=== PATIENT | female | born 1930 | race Caucasian/White ===

== ENCOUNTER 2016-11-23 13:59 | Inpatient (IN) | payer MEDICARE, BC ==
[~2016-11-23] VITALS: Ht 157.5 cm; Wt 62.9 kg
[~2016-11-23 13:59] MED LIST: AMOXIL250 M1 PO; ASPIRIN81 MG PO; CATAPRES0.1 MG PO; CELEXA10 MG PO; LASIX20 MG PO; LISINOPRIL10 MG PO; MULTIPLE VITAMI1 TA1 PO; OXYBUTYNIN CHLOR5 MG PO; SENSIPAR30 MG PO; SYNTHROID100 MCG PO; TOPROL XL100 MG PO; TOPROL XL25 MG PO; TOPROL XL50 MG PO; XANAX0.25 MG PO; ZYLOPRIM100 MG PO
[2016-11-23 14:35] LABS: BASOPHILS 0.2 % (0.0-2.0); EOSINOPHILS 4.6 % (0-7); HEMOGLOBIN 10.8 g/dL (12-16); IMMATURE GRANULOCYTES 0.3 % (0-5); LYMPHOCYTES 10.9 % (15-50); MCH 28.9 pg (26.0-34.0); MCHC 32.7 g/dL (31.0-37.0); MCV 88.2 fL (80.0-100.0); MEAN PLATELET VOLUME 10.1 fL (7.4-10.4); MONOCYTES 6.3 % (2-11); NEUTROPHILS 77.7 % (40-80); PLATELET COUNT 266 10x3/uL (130-400); RBC 3.74 10x6/uL (4.00-5.40); RDW 14.9 % (11.5-14.5); WBC 9.5 10x3/uL (4.8-10.8)
[2016-11-23 14:57] LABS: ALBUMIN 3.3 g/dL (3.4-5.0); ANION GAP 21.6 mmol/L (8-16); BILIRUBIN - TOTAL 0.37 mg/dL (0.2-1.3); CALCIUM 8.9 mg/dL (8.5-10.1); CARBON DIOXIDE 17.1 mmol/L (21.0-32.0); CREATININE - SERUM 3.2 mg/dL (0.6-1.3); POTASSIUM - SERUM 5.7 mmol/L (3.5-5.1); PROTEIN - SERUM 6.9 g/dL (6.4-8.2)
[2016-11-23 15:08] LABS: T4 THYROXIN - FREE 1.93 ng/dL (0.76-1.46); T4 THYROXINE 11.1 ug/dL (4.7-13.3); THYROID STIMULATING HORMONE 2.05 uIU/mL (0.36-3.74)
[2016-11-23 15:12] LABS: MAGNESIUM - SERUM 1.7 mg/dL (1.8-2.4)
[2016-11-23 15:14] LABS: TROPONIN-I 0.273 ng/mL (0.000-0.060)
[2016-11-23 16:58] VITALS: BP 105/65; BMI 24.1
--- NOTE | 2016-11-23 17:12 | NUR ---
PT IS ALERT. RECEIVED FROM ER VIA STRETCHER. NO CO PAIN AT THIS TIME. WILL CONTINUE TO MONTIOR. 113 UNCONTROLLED AFIB.
--- NOTE | 2016-11-23 19:09 | NUR ---
INITIAL ROUNDS COMPLETED. PT DENIES ANY DISCOMFORT. WILL CONTINUE TO MONITOR.
--- NOTE | 2016-11-23 20:07 | NUR ---
ASSESSMENT COMPLETED AT 1930 HRS. UCAF PER CM HR 126. BP 90/59. IV TO LAC WIT BICARB DRIP AT 125CC/HR. IV PATENT. LUNGS DIMINISHED IN BASES BILAT. DMITRI ANY DISCOMFORT. BED ALARM ON. SR UP X2, CALL LIGHT WITHIN REACH.
[2016-11-23 20:49] VITALS: BP 90/59
--- NOTE | 2016-11-23 21:48 | NUR ---
PM MED GIVEN. PT DENIES ANY NEEDS OR DISCOMFORT. WILL CONTINUE TO MONITOR. SR UP X2, CALL LIGHT WITHIN REACH AND BED ALARM ON.
[2016-11-24 00:04] VITALS: BP 96/55
--- NOTE | 2016-11-24 00:25 | NUR ---
ASSISTED PT TO BR. SILVA DIARRHEA NOTED. PT CLEANED AND NEW DEPENDS PLACED. ASSISTED BACK TO BED. WILL CONTINUE TO MONITOR. SR UP X2, CALL LIGHT WITHIN REACH.
--- NOTE | 2016-11-24 02:09 | NUR ---
PT AWAKE; DENIES ANY DISCOMFORT. UCAF PER CM HR 132. WILL CONTINUE TO MONITOR. SR UP X2, CALL LIGHT WITHIN REACH AND BED ALARM ON.
--- NOTE | 2016-11-24 04:04 | NUR ---
UCAF PER CM HR 136. PT DENIES ANY DISCOMFORT. WILL CONTINUE TO MONITOR.
[2016-11-24 04:12] VITALS: BP 93/57
--- NOTE | 2016-11-24 06:01 | NUR ---
PT CONTINUES TO BE IN UCAF HR 120'S TO 130'S PER CM. DENIES ANY DISCOMFORT. PT STATED SHE WAS SCARED. EMOTIONAL SUPPORT GIVEN. NEEDS MET; WILL CONTINUE TO MONITOR.
[2016-11-24 06:05] LABS: BASOPHILS 0.1 % (0.0-2.0); EOSINOPHILS 4.1 % (0-7); HEMATOCRIT 29.8 % (36.0-48.0); HEMOGLOBIN 9.8 g/dL (12-16); IMMATURE GRANULOCYTES 0.2 % (0-5); LYMPHOCYTES 13.8 % (15-50); MCH 28.4 pg (26.0-34.0); MCHC 32.9 g/dL (31.0-37.0); MCV 86.4 fL (80.0-100.0); MEAN PLATELET VOLUME 10.7 fL (7.4-10.4); MONOCYTES 9.1 % (2-11); NEUTROPHILS 72.7 % (40-80); PLATELET COUNT 280 10x3/uL (130-400); RBC 3.45 10x6/uL (4.00-5.40); RDW 14.8 % (11.5-14.5); WBC 8.1 10x3/uL (4.8-10.8)
[2016-11-24 06:21] LABS: CALCIUM 8.6 mg/dL (8.5-10.1); CREATININE - SERUM 2.9 mg/dL (0.6-1.3)
[2016-11-24 06:23] LABS: CARBON DIOXIDE 26.2 mmol/L (21.0-32.0); POTASSIUM - SERUM 4.2 mmol/L (3.5-5.1)
[2016-11-24 08:52] VITALS: BP 116/48
--- NOTE | 2016-11-24 09:47 | NUR ---
TELEMETRY UCAF. IV STARTED TO RITH WRIST WITH 22 GAUGE CATH. DILTIAZEM GTT STARTED PER ORDERS. WILL CONT. PLAN OF CARE.
[2016-11-24 13:20] VITALS: BP 97/59
[2016-11-24 16:25] LABS: ERYTHROCYTE SEDIMENTATION RATE 30 mm/hr (0-42)
--- NOTE | 2016-11-24 16:40 | NUR ---
URINE SPECIMEN COLLECTED AND TAKEN TO LAB.
[2016-11-24 16:58] LABS: CREATININE - URINE 102.1 mg/dL (30-125); PRO/CRE RATIO URINE 0.3 mg/g; PROTEIN - URINE 30.3 mg/dL (0.0-11.9)
[2016-11-24 17:18] VITALS: BP 95/44
[2016-11-24 17:39] LABS: APPEARANCE HAZY (CLEAR); BILIRUBIN NEGATIVE (NEGATIVE); COLOR YELLOW (YELLOW); GLUCOSE NEGATIVE (NEGATIVE); KETONE NEGATIVE (NEGATIVE); LEUKOCYTE ESTERASE 1+ (NEGATIVE); NITRITE NEGATIVE (NEGATIVE); PROTEIN NEGATIVE (NEGATIVE); SPECIFIC GRAVITY 1.015 (1.005-1.020); UROBILINOGEN NORMAL (NORMAL)
[2016-11-24 17:40] LABS: BACTERIA MANY /hpf (NONE SEEN); RED CELLS - URINE 0-5 /hpf (0-5)
--- NOTE | 2016-11-24 20:13 | NUR ---
INITIAL ROUNDS COMPLETED AT 1914 HRS. DAUGHTER AT BEDSIDE. ASSESSMENT COMPLETED AT 1939 HRS. CAF PER CM HR 75. IV TO RFA WITH CARDIZEM DRIP AT 10CC/HR AND DNS AT 50CC/HR. IV PATENT. IV TO LAC SL. LUNGS DIMINISHED INBASES BILAT. BD ALARM ON. WILL CONTINUE TO MONITOR. SR UP X2, CALL LIGHT WITHIN REACH.
[2016-11-24 20:19] VITALS: BP 100/70
--- NOTE | 2016-11-24 23:05 | NUR ---
BEDBATH DONE; BED LINENS CHANGED. PT TOLERATED ACTIVITY WELL. WILL CONTINUE TO MONITOR. SR UP X2, CALL LIGHT WITHIN REACH AND BED ALARM ON.
[2016-11-25 00:36] VITALS: BP 107/74
--- NOTE | 2016-11-25 00:37 | NUR ---
PT RESTING WITH EYES CLOSED. RESP EVEN AND REGULAR. SR UP X2, CALL LIGHT WITHIN REACH AND BED ALARM ON.
--- NOTE | 2016-11-25 01:59 | NUR ---
PT RESTING WITH EYES CLOSED. RESP EVEN AND REGULAR. SR UP X2, CALL LIGHT WITHIN REACH.
--- NOTE | 2016-11-25 04:36 | NUR ---
LOVENOX 60MG SUB-Q TO UPPER ABD GIVEN. PT AWOKE TO VERBAL STIMULI BUT QUICKLY FELL BACK TO SLEEP. CAF PER CM HR 68. WILL CONTINUE TO MONITOR.
[2016-11-25 04:46] VITALS: BP 121/63
--- NOTE | 2016-11-25 06:03 | NUR ---
VSS THROUGHOUT NIGHT. PT LETHARGIV THIS AM. AWAKES TO VERBAL STIMULI, FOLLOWS COMMANDS. PT SWALLOWED AM MED WITHOUT DIFFICULY THEN FELL BACK TO SLEEP. CAF PER CM HR IN 60'S. NEEDS MET; WILL CONTINUE TO MONITOR.
--- NOTE | 2016-11-25 07:29 | NUR ---
ASSESSMENT COMPLETED. DENIES ANY NEEDS. TELEMERTY SHOWS SR. LEFT AC SL. CATH SITE TO RIGHT GROIN SOFT AND DRY. NPO FOR CATH TODAY
--- NOTE | 2016-11-25 07:30 | NUR ---
PT RESTING QUIETLY NAD NOTED
--- NOTE | 2016-11-25 07:46 | NUR ---
ASSESSMENT COMPLETED.TELEMERTY SHOWS CAF. IV TO RIGHT FA WITH D5NS AT 50, CARDIZEM AT 5. LAC SL. DENIES ANY NEEDS. CALL LIGHT IN REACH WITH SR UP. WILL MONITOR
[2016-11-25 08:00] VITALS: BP 82/47
[2016-11-25 11:27] VITALS: BP 97/51
[2016-11-25 16:00] VITALS: BP 102/53
--- NOTE | 2016-11-25 17:13 | NUR ---
HOB UP FOR DIET. DENIES ANY NEEDS. TELEMERTY SHOWS AFIB. FAMILY AT BEDSIDE. SR UP WITH CALL LIGHT IN REACH. WILL MONITOR
--- NOTE | 2016-11-25 19:00 | NUR ---
RECEIVED REPORT AND ASSUMED PT CARE FROM DAY SHIFT NURSE @ THIS TIME.
[2016-11-25 20:58] VITALS: BP 105/75
--- NOTE | 2016-11-25 21:57 | NUR ---
PT RESTING WELL WITHOUT C/O OR DISTRESS NOTED. CALL LIGHT WITHIN REACH. NO NEEDS VOICED. WILL CONT TO MONITOR.
[2016-11-26] VITALS (7 sets, daily range): BP systolic 101–128; BP diastolic 62–93
--- NOTE | 2016-11-26 01:13 | NUR ---
PT RESTING [id number] AND WITHOUT C/O OR DISTRESS NOTED. NO NEEDS VOICED. CALL LIGHT WITHIN REACH.
--- NOTE | 2016-11-26 03:25 | NUR ---
PT RESTING WELL WITHOUT C/O OR DISTRESS NOTED. PT IN DIRECT VIEW OF NURSES STATION. WILL MONITOR.
[2016-11-26 04:55] LABS: BASOPHILS 0.5 % (0.0-2.0); HEMATOCRIT 27.4 % (36.0-48.0); HEMOGLOBIN 8.5 g/dL (12-16); IMMATURE GRANULOCYTES 0.3 % (0-5); LYMPHOCYTES 20.6 % (15-50); MCH 28.4 pg (26.0-34.0); MEAN PLATELET VOLUME 10.8 fL (7.4-10.4); MONOCYTES 7.7 % (2-11); NEUTROPHILS 62.9 % (40-80); RBC 2.99 10x6/uL (4.00-5.40); WBC 6.3 10x3/uL (4.8-10.8)
[2016-11-26 04:57] LABS: MCV 91.6 fL (80.0-100.0); PLATELET COUNT 213 10x3/uL (130-400)
[2016-11-26 05:18] LABS: ANION GAP 11.3 mmol/L (8-16); CALCIUM 9.4 mg/dL (8.5-10.1); CARBON DIOXIDE 29.5 mmol/L (21.0-32.0); CREATININE - SERUM 3.1 mg/dL (0.6-1.3); PHOSPHOROUS 5.1 mg/dL (2.5-4.9); POTASSIUM - SERUM 3.8 mmol/L (3.5-5.1)
--- NOTE | 2016-11-26 08:00 | NUR ---
ASSESSMENT COMPLETED. DENIES ANY NEEDS. PT IS [place]. TELEMERTY SHOWS ST WITH A HEART RATE OF 111. IV TO RIGHT WRIST PATENT. PT IS CONFUSED AT TIMES. SR UP WITH CALL LIGHT IN REACH. BED ALARM ON
--- NOTE | 2016-11-26 13:15 | NUR ---
RESTING QUIETLY IN BED VISITING WITH FAMILY. MONITOR SHOWS AFIB @ RATE OF 100. WILL CONTINUE TO MONITOR.
--- NOTE | 2016-11-26 18:33 | NUR ---
LYING QUIETLY. DENIES ANY NEEDS. TELEMERTY SHOWS ST. FAMILY AT BEDSIDE
--- NOTE | 2016-11-26 19:03 | NUR ---
LAYING IN BED, AWAKE AND ALERT, SKIN WARM, DRY AND PALE, RESP UNLABORED, IV PATENT TO RIGHT WRIST, FAMILY AT BEDSIDE, NO DISTRESS NOTED
--- NOTE | 2016-11-27 00:16 | NUR ---
NO CHANGES NOTED IN ASSESSMENT. PT RESTING WELL WITHOUT C/O NOTED. CALL LIGHT REMAINS WITHIN REACH. WILL CONT TO MONITOR.
[2016-11-27 04:00] VITALS: BP 134/91
[2016-11-27 05:53] LABS: BASOPHILS 0.4 % (0.0-2.0); EOSINOPHILS 8.3 % (0-7); HEMATOCRIT 27.8 % (36.0-48.0); HEMOGLOBIN 8.7 g/dL (12-16); MCH 29.3 pg (26.0-34.0); MCHC 31.3 g/dL (31.0-37.0); MEAN PLATELET VOLUME 10.3 fL (7.4-10.4); MONOCYTES 7.1 % (2-11); NEUTROPHILS 62.2 % (40-80); PLATELET COUNT 189 10x3/uL (130-400); RBC 2.97 10x6/uL (4.00-5.40); RDW 15.3 % (11.5-14.5); WBC 5.6 10x3/uL (4.8-10.8)
[2016-11-27 06:20] LABS: MCV 93.6 fL (80.0-100.0)
--- NOTE | 2016-11-27 06:24 | NUR ---
RESTING QUIETLY IN BED, NO DISTRESS NOTED
[2016-11-27 06:28] LABS: % SATURATION 13 % (15-55); IRON 32 ug/dl (35-150); TOTAL IRON BIND CAPACITY 229 ug/dl (260-445); UNSAT IRON BIND CAPACITY 197 ug/dl (150-375)
[2016-11-27 06:33] LABS: ANION GAP 10.2 mmol/L (8-16); CALCIUM 8.7 mg/dL (8.5-10.1); CARBON DIOXIDE 28.6 mmol/L (21.0-32.0); CREATININE - SERUM 2.4 mg/dL (0.6-1.3); MAGNESIUM - SERUM 1.5 mg/dL (1.8-2.4); POTASSIUM - SERUM 3.8 mmol/L (3.5-5.1)
[2016-11-27 06:39] LABS: PHOSPHOROUS 3.8 mg/dL (2.5-4.9)
[2016-11-27 08:00] VITALS: BP 118/72
--- NOTE | 2016-11-27 08:23 | NUR ---
ASSESSMENT DONE. DENIES NEED.
--- NOTE | 2016-11-27 09:21 | NUR ---
UP AMBULATING HALLWAY WITH PT ASSIST. WILL CONT. PLAN OF CARE.
--- NOTE | 2016-11-27 11:20 | NUR ---
Patient Name: MATIAS PHAM Admission Status: ER Accout number: [id number] Admission Date: 11-23-2016 : 1930 Admission Diagnosis: Attending: BECKY Current LOS: 4 Anticipated DC Date: Planned Disposition: Home Health Service Primary Insurance: MEDICARE A & B Discharge Planning Comments: * Is the patient Alert and Oriented? Yes 0 * How many steps to enter\exit or inside your home? RAMP 0 * PCP DR. KELLY 0 * Pharmacy [facility] 0 * Preadmission Environment Home with Family 0 * ADLs Partial Dependent 0 * Partial ADLs (Assistance needed) Medication Management 0 * Equipment Bedside Commode Rolling Walker 0 * Other Equipment [employer] - MEDICAL EQUIPMENT PROVIDER PREFERENCE 0 * List name and contact numbers for known caregivers / representatives who currently or will assist patient after discharge: DR. KAILA PHAM, SPOUSE, TRI PHAM, SON, 0 * Community resources currently utilized Home Health 0 * Please name any agencies selected above. [facility] 0 * Additional services required to return to the preadmission environment? No 0 * Can the patient safely return to the preadmission environment? Yes 0 * Has this patient been hospitalized within the prior 30 days at any hospital? Yes 0 CM MET WITH PT, SPOUSE AND SON IN ROOM TO DISCUSS DISCHARGE PLANNING AND NEEDS. PT LIVES AT HOME WITH ASSISTANCE OF SPOUSE. PT HAS A ROLLING WALKER AND BEDSIDE COMMODE PROVIDED BY [employer]. PT HAS HOME HEALTH WITH [facility]. CM DISCUSSED AVAILABILITY OF HOME HEALTH, REHAB SERVICES AND MEDICAL EQUIPMENT. PT'S SPOUSE REPORTS THAT HE WILL BE TAKING PT HOME AT DISCHARGE WITH [facility] OF [facility]. PT'S SPOUSE WILL PICK PT UP FOR DISCHARGE HOME. FOR DISCHARGE, NOTIFY [facility] THE [facility] FOR [facility]UMPTION AT [phone], FAX DISCHARGE INFORMATION TO [phone]. CM TO FOLLOW AND ASSIST NEEDED. New Media Strategist: Kurt Fernandes
[2016-11-27 11:57] VITALS: BP 116/64
[2016-11-27 12:37] VITALS: Ht 157.5 cm; Wt 62.9 kg
[2016-11-27 14:04] LABS: CREATININE - URINE 98.4 mg/dL (30-125); PROTEIN - URINE 36.1 mg/dL (0.0-11.9)
[2016-11-27 14:06] LABS: APPEARANCE SLT CLOUDY (CLEAR); BILIRUBIN NEGATIVE (NEGATIVE); COLOR YELLOW (YELLOW); GLUCOSE NEGATIVE (NEGATIVE); KETONE NEGATIVE (NEGATIVE); LEUKOCYTE ESTERASE 2+ (NEGATIVE); NITRITE POSITIVE (NEGATIVE); PROTEIN NEGATIVE (NEGATIVE); SPECIFIC GRAVITY 1.015 (1.005-1.020); UROBILINOGEN NORMAL (NORMAL)
[2016-11-27 14:07] LABS: BACTERIA FEW /hpf (NONE SEEN); MUCUS <1+ /lpf (NONE SEEN); RED CELLS - URINE OCC /hpf (0-5); WHITE CELLS - URINE 25-50 /hpf (0-5)
[2016-11-27 16:00] VITALS: BP 121/77
[2016-11-27 17:10] LABS: SPE - A/G RATIO 1.2 (0.7-1.7); SPE - ALBUMIN 3.1 g/dL (2.9-4.4); SPE - ALPHA-1 GLOBULIN 0.2 g/dL (0.0-0.4); SPE - ALPHA-2 GLOBULIN 0.9 g/dL (0.4-1.0); SPE - BETA GLOBULIN 0.8 g/dL (0.7-1.3); SPE - GAMMA GLOBULIN 0.6 g/dL (0.4-1.8); SPE - M-SPIKE Not Observed g/dL (Not Observed); SPE - TOTAL PROTEIN 5.6 g/dL (6.0-8.5)
--- NOTE | 2016-11-27 19:58 | NUR ---
RESUMED CARE OF PT, ASSISSTED BACK TO BED FROM BEDSIDE COMMODE, SHORT OF BREATH AND LABORED RESPIRATIONS AT THIS TIME. 142 AF ON TELEMETRY, DR. LORENZANA PAGED SEE NEW ORDERS. RIGHT WRIST SALINE LOCKED. CALL LIGHT IN REACH. WILL CONTINUE TO MONITOR. SEE NURSE ASSESSMENT.
[2016-11-27 22:01] VITALS: BP 121/78
--- NOTE | 2016-11-28 00:42 | NUR ---
SOA INTEGRATION ARCHITECT AT BEDSIDE TO OBTAIN VITALS, CALL LIGHT IN REACH. WILL CONTINUE WITH PLAN OF CARE.
[2016-11-28 01:10] VITALS: BP 102/56
[2016-11-28 05:10] LABS: BASOPHILS 0.3 % (0.0-2.0); EOSINOPHILS 6.4 % (0-7); HEMATOCRIT 32.1 % (36.0-48.0); HEMOGLOBIN 9.8 g/dL (12-16); IMMATURE GRANULOCYTES 0.3 % (0-5); LYMPHOCYTES 13.8 % (15-50); MCH 28.6 pg (26.0-34.0); MCHC 30.5 g/dL (31.0-37.0); MCV 93.6 fL (80.0-100.0); MEAN PLATELET VOLUME 10.3 fL (7.4-10.4); MONOCYTES 5.7 % (2-11); NEUTROPHILS 73.5 % (40-80); RBC 3.43 10x6/uL (4.00-5.40); RDW 15.3 % (11.5-14.5)
[2016-11-28 05:14] LABS: PLATELET COUNT 254 10x3/uL (130-400); WBC 11.7 10x3/uL (4.8-10.8)
[2016-11-28 05:33] VITALS: BP 144/94
[2016-11-28 05:38] LABS: ANION GAP 12.4 mmol/L (8-16); CALCIUM 9.9 mg/dL (8.5-10.1); CARBON DIOXIDE 25.5 mmol/L (21.0-32.0); CREATININE - SERUM 2.3 mg/dL (0.6-1.3); PHOSPHOROUS 3.1 mg/dL (2.5-4.9)
[2016-11-28 05:40] LABS: POTASSIUM - SERUM 4.9 mmol/L (3.5-5.1)
--- NOTE | 2016-11-28 06:40 | NUR ---
NO CHANGES FROM PREVIOUS ASSESSMENT, CALL LIGHT IN REACH.
--- NOTE | 2016-11-28 08:05 | NUR ---
ASSESSMENT DONE. DENIES NEEDS. SON AT SIDE.
[2016-11-28 08:25] VITALS: BP 109/65
--- NOTE | 2016-11-28 08:44 | NUR ---
RESTS WITH EYES CLOSED. RESP UL ON 02 2L NC. CALL LIGHT IN REACH. WILL CONT. PLAN OF CARE.
--- NOTE | 2016-11-28 08:49 | NUR ---
RESP UL ON . NO NEEDS VOICED. CALL LIGHT IN REACH. WILL MONITOR.
[2016-11-28 11:26] VITALS: BP 110/51
[2016-11-28 15:53] VITALS: BP 106/55
--- NOTE | 2016-11-28 17:53 | NUR ---
WITHOUT CHANGES OR DISTRESS NOTED AT THIS TIME. DENIES NEEDS. SON AT SIDE.
[2016-11-28 19:09] LABS: UPE RAND - ALBUMIN 29.6 % (()); UPE RAND - ALPHA 1 GLOBULIN 4.7 % (()); UPE RAND - ALPHA 2 GLOBULIN 16.3 % (()); UPE RAND - BETA GLOBULIN 22.1 % (()); UPE RAND - GAMMA GLOBULIN 27.3 % (())
--- NOTE | 2016-11-28 20:08 | NUR ---
RESUMED CARE OF PT, LYING IN BED RESPIRATIONS EVEN AND UNLABORED ON 4LPM VIA NC. 70 CAF ON TELEMETRY. RIGHT HAND SALINE LOCKED. SON AT BEDSIDE. PLAN OF CARE DISCUSSED. NO NEEDS VOICED AT THIS TIME. WILL CONTINUE TO MONITOR. SEE NURSE ASSESSMENT. CALL LIGHT IN REACH.
[2016-11-28 20:59] VITALS: BP 101/63
--- NOTE | 2016-11-29 00:27 | NUR ---
STITCHER STANDARD MACHINE AT BEDSIDE TO OBTAIN VITALS, CALL LIGHT IN REACH. WILL CONTINUE WITH PLAN OF CARE.
[2016-11-29 00:54] VITALS: BP 92/42
[2016-11-29 04:47] VITALS: BP 100/55
--- NOTE | 2016-11-29 05:31 | NUR ---
CONVERTED TO 62 SR.
[2016-11-29 05:42] LABS: BASOPHILS 0.2 % (0.0-2.0); EOSINOPHILS 6.1 % (0-7); HEMATOCRIT 27.2 % (36.0-48.0); HEMOGLOBIN 8.1 g/dL (12-16); IMMATURE GRANULOCYTES 0.2 % (0-5); LYMPHOCYTES 15.2 % (15-50); MCH 28.5 pg (26.0-34.0); MCHC 29.8 g/dL (31.0-37.0); MONOCYTES 7.4 % (2-11); NEUTROPHILS 70.9 % (40-80); RBC 2.84 10x6/uL (4.00-5.40); RDW 15.3 % (11.5-14.5)
[2016-11-29 05:47] LABS: CALCIUM 8.7 mg/dL (8.5-10.1); CARBON DIOXIDE 27.2 mmol/L (21.0-32.0); CREATININE - SERUM 2.5 mg/dL (0.6-1.3); MCV 95.8 fL (80.0-100.0); PHOSPHOROUS 3.2 mg/dL (2.5-4.9); PLATELET COUNT 179 10x3/uL (130-400); POTASSIUM - SERUM 4.2 mmol/L (3.5-5.1); WBC 8.1 10x3/uL (4.8-10.8)
--- NOTE | 2016-11-29 06:23 | NUR ---
AM MEDS GIVEN, CALL LIGHT IN REACH. NO NEEDS VOICED AT THIS TIME.
--- NOTE | 2016-11-29 07:38 | NUR ---
ASSESSMENT DONE. DENIES NEEDS. FAMILY AT SIDE.
[2016-11-29 08:17] VITALS: BP 98/42
--- NOTE | 2016-11-29 09:29 | NUR ---
UP AMBULATING WITH PT ASSIST.
[2016-11-29 12:21] VITALS: BP 98/48
--- NOTE | 2016-11-29 13:18 | NUR ---
Nutrition Follow Up: Chart reviewed. Diet: AHA Low Na PO Intake: 28% (8 meal avg) Wt gain 10# since admit ? I>O +BM 11/29/16 Labs noted - BUN, Cr elevated Meds noted Pt continues with poor po intake. Rec consider liberalizing diet to encourage intake. RD following.
[2016-11-29 16:15] VITALS: BP 101/51
--- NOTE | 2016-11-29 16:40 | EC ---
PATIENT:MATIAS PHAM DATE OF SERVICE: 11/23/16 SEX: F MEDICAL RECORD: [id number] DATE OF : [birth year] LOCATION:D. D.212 AGE OF PATIENT: 86 ADMISSION DATE: 11/23/16 REFERRING PHYSICIAN: INTERPRETING PHYSICIAN: FILIBERTO ONEILL M.D. ECHOCARDIOGRAM REPORT ECHO CHARGES 4 ECHO COMPLETE CLINICAL DIAGNOSIS: AFIB NEW ONSET ECHOCARDIOGRAPHIC MEASUREMENTS (adult normal given) AC root (d.<3.7cm) 3.7 LV Septum d (<1.2 cm> 1.4 Valve Excursion 1.6 LV Septum (systole) 2.0 Left Atria (s.<4.0cm> 5.0 LVPW d(<1.2cm) 1.4 RV (d.<2.3cm) 3.4 LVPW (sytole) 1.9 LV diastole(<5.6CM) 4.9 MV E-F(>70mm/sec) LV systole 3.1 LVOT Diameter 1.8 MV exc.(>10mm) 1.2 Est.ejection fraction (50-75%) Pericardial Effusion N DOPPLER: LVIT A 40.0 E 127 LA RVSP 23 LVOT 82 AOP1/2T Asc. Ao 122 RVOT 54 RA PA 90 AV Gradient Peak 6.0 AV Mean 3.0 AV Area 1.7 MV Gradient Peak 8.32 MV Mean 1.90 MV Area COMMENTS: Lubrication Equipment Servicer: Justin BRIGHT Network Strategist:2 Dr. Oneill TAPE# PACS DATE OF SERVICE: 11/25/2016 REFERRING PHYSICIAN: Dr. Gonzalez. INDICATION: Atrial fibrillation. DESCRIPTION: Left ventricle demonstrates ____. No wall motion abnormalities are seen. Its ejection fraction is in the order of 50% to 55%. Mitral valve is structurally normal. There is mild to moderate regurgitation noted. Left atrium is moderately dilated. The aortic valve is trileaflet. I do not see any ECHOCARDIOGRAM REPORT [id number] MATIAS PHAM stenosis or regurgitation. Right ventricle is mildly dilated. Tricuspid valve is structurally normal. There is mild regurgitation seen. Right atrium is normal in size. There is no pericardial effusion noted. IMPRESSION: 1. Left ventricular hypertrophy with preserved ejection fraction of ____ 55%. 2. Mild to moderate mitral regurgitation. 3. Mild tricuspid regurgitation. TRANSINT:[id number] Voice Confirmation ID: [id number] DOCUMENT ID: [id number] FILIBERTO ONEILL M.D. at [facility] CC: [id number] DICTATION DATE: 11/25/16 1204 VICE PRESIDENT QUALITY: 11/25/16 1212 ADM IN [address] [id number] [place] [address]
--- NOTE | 2016-11-29 17:46 | NUR ---
WITHOUT CHANGES OR DISTRESS NOTED AT THIS TIME. FAMILY AT SIDE.
--- NOTE | 2016-11-29 19:00 | NUR ---
RECEIVED REPORT AND ASSUMED PT CARE FROM DAY SHIFT NURSE @ THIS TIME.
[2016-11-29 20:00] VITALS: BP 106/60
--- NOTE | 2016-11-29 21:22 | NUR ---
PT RESTING WELL WITHOUT C/O OR DISTRESS NOTED. ASSESSMENT COMPLETED. VSS, AFEBRILE. RESP EVEN UNLABORED. WILL MONITOR.
[2016-11-30] VITALS: BP 94/50
[2016-11-30 04:00] VITALS: BP 114/60
[2016-11-30 05:05] LABS: BASOPHILS 0.2 % (0.0-2.0); EOSINOPHILS 7.2 % (0-7); HEMATOCRIT 26.9 % (36.0-48.0); HEMOGLOBIN 8.1 g/dL (12-16); IMMATURE GRANULOCYTES 0.5 % (0-5); LYMPHOCYTES 15.3 % (15-50); MCH 28.2 pg (26.0-34.0); MCHC 30.1 g/dL (31.0-37.0); MEAN PLATELET VOLUME 10.9 fL (7.4-10.4); MONOCYTES 7.8 % (2-11); RBC 2.87 10x6/uL (4.00-5.40); RDW 15.5 % (11.5-14.5)
[2016-11-30 05:14] LABS: MCV 93.7 fL (80.0-100.0); PLATELET COUNT 126 10x3/uL (130-400)
[2016-11-30 05:22] LABS: ANION GAP 12.5 mmol/L (8-16); CALCIUM 8.3 mg/dL (8.5-10.1); CARBON DIOXIDE 25.9 mmol/L (21.0-32.0); CREATININE - SERUM 2.4 mg/dL (0.6-1.3); POTASSIUM - SERUM 4.4 mmol/L (3.5-5.1)
--- NOTE | 2016-11-30 06:47 | NUR ---
RESTING QUIETLY NAD NOTED WILL CONT TO MONITOR
[2016-11-30 07:56] VITALS: BP 115/61
[2016-11-30 12:22] VITALS: BP 102/56
[2016-11-30 16:00] VITALS: BP 101/53
--- NOTE | 2016-11-30 19:30 | NUR ---
INITIAL ROUNDS COMPLETED. PT RESTING WITH EYES CLOSED. RESP EVEN AND REGULAR. SR UP X2, CALL LIGHT WITHIN REACH.
[2016-11-30 20:30] VITALS: BP 109/55
--- NOTE | 2016-11-30 22:08 | NUR ---
ASSISTED TO BR WITH WALKER AT 2044 HRS. PT VOIDED 100CC OF YELLOW URINE. ASSSITED BACK TO BED. PM MEDS GIVE. WILL CONTINUE TO MONITOR. SR UP X2, CALL LIGHT WITHIN REACH AND BED ALARM ON.
--- NOTE | 2016-11-30 23:58 | NUR ---
SB PER CM HR 52. PT RESTING WITH EYES CLOSED. RESP EVEN AND REGULAR. SR UP X2, CALL LIGHT WITHIN REACH AND BED ALARM ON.
[2016-12-01 00:30] VITALS: BP 107/60
--- NOTE | 2016-12-01 02:37 | NUR ---
SB PER CM HR 58. VSS. PT RESTING WITH EYES CLOSED. RESP EVEN AND REGULAR. SR UP X2, CALL LIGHT WITHIN REACH AND BED ALARM ON.
--- NOTE | 2016-12-01 03:44 | NUR ---
PT RESTING WITH EYES CLOSED. RESP EVEN AND REGULAR. SR UP X2, CALL LIGHT WITHIN REACH AND BED ALARM ON.
[2016-12-01 04:30] VITALS: BP 101/59
--- NOTE | 2016-12-01 06:26 | NUR ---
PT DLEPT WELL DURING SHIFT. ONLY VOIDED 100CC PRIOR TO BEDTIME. NO BLADDER DISTENTION NOTED. NEEDS MET; WILL CONTINUE TO MONITOR.
[2016-12-01 06:43] LABS: BASOPHILS 0.3 % (0.0-2.0); EOSINOPHILS 8.3 % (0-7); HEMATOCRIT 26.1 % (36.0-48.0); HEMOGLOBIN 7.9 g/dL (12-16); IMMATURE GRANULOCYTES 0.2 % (0-5); LYMPHOCYTES 22.1 % (15-50); MCH 28.9 pg (26.0-34.0); MCHC 30.3 g/dL (31.0-37.0); MCV 95.6 fL (80.0-100.0); NEUTROPHILS 59.1 % (40-80); RBC 2.73 10x6/uL (4.00-5.40); RDW 15.7 % (11.5-14.5)
[2016-12-01 07:01] LABS: CALCIUM 8.4 mg/dL (8.5-10.1); CARBON DIOXIDE 28.2 mmol/L (21.0-32.0); CREATININE - SERUM 2.6 mg/dL (0.6-1.3); MAGNESIUM - SERUM 1.8 mg/dL (1.8-2.4); PHOSPHOROUS 3.1 mg/dL (2.5-4.9); PLATELET COUNT 165 10x3/uL (130-400); POTASSIUM - SERUM 4.2 mmol/L (3.5-5.1); WBC 5.9 10x3/uL (4.8-10.8)
--- NOTE | 2016-12-01 07:30 | NUR ---
RECEIVED PT IN BED WITH RESTING QUIETLY EYES CLOSED RESP UNLABORED NAD NOTED
--- NOTE | 2016-12-01 08:05 | NUR ---
ZOFRAN 4 MG GIVEN SIVP FOR C/O NAUSEA
[2016-12-01 09:00] VITALS: BP 113/63
[2016-12-01 11:58] VITALS: BP 114/46
[2016-12-01 17:14] VITALS: BP 96/52
[2016-12-01 19:12] LABS: APPEARANCE CLEAR (CLEAR); BILIRUBIN NEGATIVE (NEGATIVE); COLOR YELLOW (YELLOW); GLUCOSE NEGATIVE (NEGATIVE); KETONE NEGATIVE (NEGATIVE); LEUKOCYTE ESTERASE NEGATIVE (NEGATIVE); NITRITE NEGATIVE (NEGATIVE); PROTEIN NEGATIVE (NEGATIVE); SPECIFIC GRAVITY 1.015 (1.005-1.020); UROBILINOGEN NORMAL (NORMAL)
[2016-12-01 19:19] LABS: CREATININE - URINE 129.9 mg/dL (30-125); PROTEIN - URINE 30.5 mg/dL (0.0-11.9)
[2016-12-01 21:13] VITALS: BP 104/51
--- NOTE | 2016-12-01 22:36 | NUR ---
FOX CATHETER PLACED BY Deric ROPER RN AT 1845 HRS WITH 250CC URINE RETURN. YELLOW IN COLOR. STERILE AMPLES SENT TO LAB. PT TOLERATED ACTIVITY WELL. ASSESSMENT COMPLETED AT 1940 HRS. SB PER CM HR 48. OTHER VSS. IV TO R WRIST SL. O2 3LNC. LUNGS DIMINISHED IN BASES BILAT. BUISE NOTED TO INNER L THIGH BASES BILAT. PM XANAX GIVEN. PM BETAPACE HELD HR 48-50. PT CURRENTLY RESTING WITH EYES CLOSED. RESP EVEN AND REGULAR. SR UP X2, CALL LIGHT WITHIN REACH AND BED ALARM ON.
--- NOTE | 2016-12-02 00:24 | NUR ---
SB PER CM HR 50. PT DENIES ANY DISCOMDORT. REPOSITIONED IN BED FOR COMFORT. WILL CONTINUE TO MONITOR. SR UP X2, CALL LIGHT WITHIN REACH AND BED ALARM ON.
[2016-12-02 00:30] VITALS: BP 98/50
--- NOTE | 2016-12-02 02:12 | NUR ---
PT RESTING WITH EYES CLOSED. RESP EVEN AND REGULAR. SR UP X2, CALL LIGHT WITHIN REACH.
[2016-12-02 04:30] VITALS: BP 107/47
--- NOTE | 2016-12-02 04:31 | NUR ---
PT AWAKE; DENIES ANY DISCOMFORT. WILL CONTINUE TO MONITOR.
[2016-12-02 06:22] LABS: BASOPHILS 0.3 % (0.0-2.0); EOSINOPHILS 7.6 % (0-7); HEMATOCRIT 25.3 % (36.0-48.0); HEMOGLOBIN 7.6 g/dL (12-16); IMMATURE GRANULOCYTES 0.3 % (0-5); LYMPHOCYTES 21.4 % (15-50); MCH 28.9 pg (26.0-34.0); MCV 96.2 fL (80.0-100.0); MEAN PLATELET VOLUME 10.7 fL (7.4-10.4); MONOCYTES 8.3 % (2-11); NEUTROPHILS 62.1 % (40-80); PLATELET COUNT 168 10x3/uL (130-400); RBC 2.63 10x6/uL (4.00-5.40); RDW 15.9 % (11.5-14.5); WBC 5.9 10x3/uL (4.8-10.8)
[2016-12-02 06:32] LABS: ANION GAP 10.8 mmol/L (8-16); CALCIUM 8.9 mg/dL (8.5-10.1); CARBON DIOXIDE 27.7 mmol/L (21.0-32.0); CREATININE - SERUM 2.7 mg/dL (0.6-1.3); POTASSIUM - SERUM 4.5 mmol/L (3.5-5.1)
[2016-12-02 08:03] VITALS: BP 133/76
--- NOTE | 2016-12-02 09:22 | NUR ---
TELEMETRY SB. RUDDY INTACT. RESP UL ON . WILL CONT. PLAN OF CARE.
[2016-12-02 13:00] VITALS: BP 98/50
[2016-12-02 16:23] VITALS: BP 93/60
[2016-12-02 21:31] VITALS: BP 113/63
[2016-12-03 06:30] LABS: BASOPHILS 0.4 % (0.0-2.0); EOSINOPHILS 8.5 % (0-7); HEMATOCRIT 26.3 % (36.0-48.0); HEMOGLOBIN 7.8 g/dL (12-16); IMMATURE GRANULOCYTES 0.2 % (0-5); LYMPHOCYTES 20.6 % (15-50); MCH 28.6 pg (26.0-34.0); MCHC 29.7 g/dL (31.0-37.0); MCV 96.3 fL (80.0-100.0); MEAN PLATELET VOLUME 10.2 fL (7.4-10.4); MONOCYTES 10.5 % (2-11); NEUTROPHILS 59.8 % (40-80); PLATELET COUNT 149 10x3/uL (130-400); RBC 2.73 10x6/uL (4.00-5.40); RDW 15.6 % (11.5-14.5); WBC 5.1 10x3/uL (4.8-10.8)
[2016-12-03 06:33] VITALS: BP 109/60
[2016-12-03 06:59] LABS: ANION GAP 7.3 mmol/L (8-16); CARBON DIOXIDE 30.3 mmol/L (21.0-32.0); CREATININE - SERUM 2.4 mg/dL (0.6-1.3); MAGNESIUM - SERUM 1.9 mg/dL (1.8-2.4); PHOSPHOROUS 3.3 mg/dL (2.5-4.9); POTASSIUM - SERUM 4.6 mmol/L (3.5-5.1)
[2016-12-03 07:52] VITALS: BP 113/59
--- NOTE | 2016-12-03 09:38 | NUR ---
TELEMETRY SR. RUDDY INTACT. RS=RAKEL UL ON 02 2L NC. UP TO CHAIR WITH PT ASSIST. WILL CONT. PLAN OF CARE.
[2016-12-03 12:00] VITALS: BP 123/61
--- NOTE | 2016-12-03 14:32 | NUR ---
Nutrition follow-up: Diet: low sodium with po intake ~25% of meals Labs reviewed Wt: 145# PO intake remains poor at this time. Pt may benefit from an appetite stimulant; if po intake does not improve will need to consider nutrition support of NGT placement vs PEG tube placement. RDN following.
[2016-12-03 15:44] VITALS: BP 123/65
--- NOTE | 2016-12-03 19:03 | NUR ---
SITTING UP IN BED, AWAKE AND ALERT, SKIN WARM AND DRY, RESP UNLABORED, IV PATENT TO LEFT FOREARM, FOX DRAINING TO GRAVITY, NO DISTRESS NOTED
[2016-12-03 20:33] VITALS: BP 118/51
[2016-12-04 00:32] VITALS: BP 113/55
[2016-12-04 04:42] VITALS: BP 125/66
--- NOTE | 2016-12-04 05:39 | NUR ---
RESTING QUIETLY IN BED, NO DISTRESS NOTED
--- NOTE | 2016-12-04 06:18 | NUR ---
PT LAYING IN BED NO DISTRESS OBSERVED CALL LIGHT IN REACH SRX2 BED LOW AND LOCKED WILL MONITOR
--- NOTE | 2016-12-04 06:44 | NUR ---
RECEIVED REPORT FROM CHOCOLATE REFINING ROLLER NURSE, SRAVAN AVILES. PT IN BED, SLEEPING AT THIS TIME. CALL LIGHT IN REACH, NAD NOTED, WILL CONTINUE TO MONITOR.
[2016-12-04 08:00] VITALS: BP 120/68
--- NOTE | 2016-12-04 09:13 | NUR ---
ADMINSITERED MORNING MEDICATIONS, PT HAD NO TROUBLE SWALLOWING PILLS BUT LIKE TO TAKE THEM ONE AT A TIME. PT IN BED, JUST GOT BACK FROM WALKING WITH PHYSICAL THERAPY. PT DENIES ANY NEEDS AT THIS TIME. CALL LIGHT IN REACH, NAD NOTED, WILL CONTINUE TO MONITOR.
[2016-12-04 12:00] VITALS: BP 134/66
[2016-12-04 16:00] VITALS: BP 120/66
--- NOTE | 2016-12-04 16:51 | NUR ---
FOX REMOVED AT THIS TIME, PER DOCTOR'S ORDER. REMOVED 10CC OUT OF BALLOON, PT TOLERATED PROCEDURE WELL. PROVIDED PT WITH A CUP OF ICE WATER. PT DENIES ANY OTHER NEEDS AT THIS TIME. CALL LIGHT IN REACH, NAD NOTED, WILL CONTINUE TO MONITOR.
--- NOTE | 2016-12-04 19:03 | NUR ---
SITTING UP IN BED, AWAKE AND ALERT, SKIN WARM AND DRY, RESP UNLABORED, IV PATENT TO LEFT FOREARM, O2@2LNC, NO DISTRESS NOTED
[2016-12-04 20:00] VITALS: BP 133/64
[2016-12-05] VITALS: BP 123/61
--- NOTE | 2016-12-05 03:56 | NUR ---
DISTRICT SERVICE MANAGER AT BEDSIDE TO OBTAIN VITALS, CALL LIGHT IN REACH. WILL CONTINUE WITH PLAN OF CARE.
[2016-12-05 04:00] VITALS: BP 128/65
[2016-12-05 06:12] LABS: ANION GAP 8.5 mmol/L (8-16); CALCIUM 9.4 mg/dL (8.5-10.1); CARBON DIOXIDE 29.8 mmol/L (21.0-32.0)
[2016-12-05 06:19] LABS: POTASSIUM - SERUM 5.3 mmol/L (3.5-5.1)
--- NOTE | 2016-12-05 06:21 | NUR ---
RESTING QUIETLY IN BED, NO DISTRESS NOTED
[2016-12-05 06:40] LABS: BASOPHILS 0.6 % (0.0-2.0); EOSINOPHILS 7.4 % (0-7); HEMATOCRIT 27.7 % (36.0-48.0); HEMOGLOBIN 8.2 g/dL (12-16); IMMATURE GRANULOCYTES 0.4 % (0-5); LYMPHOCYTES 22.5 % (15-50); MCH 28.7 pg (26.0-34.0); MCHC 29.6 g/dL (31.0-37.0); MCV 96.9 fL (80.0-100.0); MEAN PLATELET VOLUME 10.4 fL (7.4-10.4); MONOCYTES 9.2 % (2-11); NEUTROPHILS 59.9 % (40-80); PLATELET COUNT 165 10x3/uL (130-400); RBC 2.86 10x6/uL (4.00-5.40); RDW 15.8 % (11.5-14.5)
--- NOTE | 2016-12-05 07:47 | NUR ---
PT SITTING UP IN BED SLEEPING NO S/S DISTRESS NOTED WILL CONTINUE TO MONITOR.
[2016-12-05 08:14] VITALS: BP 124/52
[2016-12-05 12:40] VITALS: BP 155/75
--- NOTE | 2016-12-05 14:01 | NUR ---
PT HAS BEEN ON THE CALL LIGHT EVERY 5 MINS ALL DAY LONG. WHEN STAFF GOES INTO PT ROOM. PT DOES NOT TELL US WHAT SHE IS IN NEED OF. SHE HAS A BLANK STARE ON HER FACE. WHEN I SPEAK TO PT AND QUESTION HER ON WHAT SHE WANTS SHE YELLS AT ME AND TELLS ME THAT I DO NOT KNOW WHAT I AM TALKING ABOUT... PT SEEMS TO BE CONFUSED AT THIS TIME. DRS AWARE. FIRST TIME TAKING CARE OF PT THIS STAY. NOT SURE OF HER STATUS BEFORE HAND. IS CURRENTLY AT BEDSIDE. PT NOT EATING WELL. PT HAS BEEN ASKED IF SHE NEEDS ASSISTANCE SHE YELLED AT ME AND TOLD ME "NO!, I AM NOT STUPID!". WE WERE UNSURE IF PT COULD GET UP AND WALK TO THE BATHROOM AND WHEN WE ASKED HER IF SHE WAS ABLE TO, SHE AGAIN REPLIED WITH "WELL YEAH, DO I LOOK UNABLE TO YOU!" PT DENIES NEEDS AT THIS TIME WILL CONTINUE TO MONITOR.
[2016-12-05 16:57] VITALS: BP 146/72
--- NOTE | 2016-12-05 17:14 | NUR ---
Patient Name: MATIAS PHAM Encounter No: [id number] : 1930 Primary Insurance: MEDICARE A & B Anticipated DC Date: Planned Disposition: Home Health Service External Planned Provider: [facility] DCP follow-up note: CM RECEIVED ORDER FOR DISCHARGE PLANNING AND HOME HEALTH. CM MET WITH PT AND SPOUSE IN ROOM. PT'S SPOUSE REPORTS HE IS READY FOR PT TO COME HOME, DENIES NEED OF REHAB PLACEMENT AND FURTHER MEDICAL EQUIPMENT. DR. PHAM WANTS HOME HEALTH RESUMED WITH [facility] AT DISCHARGE. CHOICE SIGNED, IMPORTANT MESSAGE FROM MEDICARE PROVIDED AND EXPLAINED. FOR DISCHARGE, NOTIFY [facility] FOR RESUMPTION AT [phone], FAX DISCHARGE INFORMATION TO [phone]. CM TO FOLLOW AND ASSIST NEEDED. PT'S SPOUSE REQEUSTS THAT ALL NEW DISCHARGE MEDICATIONS BE CALLED IN TO [facility]. Packing Room Worker: Kurt Fernandes
--- NOTE | 2016-12-05 17:28 | NUR ---
PT SITTING UP IN BED EATING DINNER. ORDERING SOFTER TRAY. DENIES OTHER NEEDS.
[2016-12-05 20:00] VITALS: BP 158/75
--- NOTE | 2016-12-05 20:00 | NUR ---
PT RESTING IN BED. RESTLESS AND FREQUENTLY CUSTOM DESIGNER LIGHT WITH VARIOUS REQUESTS. SB/SR PER TELEMETRY. O2 @ 2L/NC. SALINE LOCK TO RIGHT WRIST. CAN BE UP TO BSC WITH ASSIST. SEE ASSESSMENT. CPOC.
--- NOTE | 2016-12-06 01:38 | NUR ---
PAGE TO DR MCCOLLUM TO REPORT THAT PT WAS HAVING ANXIETY/PANIC AND IT WAS DETERMINED THAT HER ORDERED XANAX 1MG AT HS HAD FALLEN OFF PER ASO. DR MCCOLLUM REORDERED MED AT THIS TIME. ADMINISTERED XANAX 1MG BY MOUTH TO PATIENT. SHE TOOK MED, BUT CONTINUES TO ROLL AROUND ON BED AND TRY TO GRAB AT STAFF AND PULL THEM DOWN TO HER.
[2016-12-06 02:28] VITALS: BP 143/72
[2016-12-06 05:20] LABS: BASOPHILS 0.5 % (0.0-2.0); EOSINOPHILS 3.7 % (0-7); HEMATOCRIT 28.4 % (36.0-48.0); HEMOGLOBIN 8.8 g/dL (12-16); IMMATURE GRANULOCYTES 0.5 % (0-5); LYMPHOCYTES 12.4 % (15-50); MCH 29.7 pg (26.0-34.0); MCV 95.9 fL (80.0-100.0); MEAN PLATELET VOLUME 10.4 fL (7.4-10.4); NEUTROPHILS 75.9 % (40-80); PLATELET COUNT 186 10x3/uL (130-400); RBC 2.96 10x6/uL (4.00-5.40)
[2016-12-06 05:23] LABS: WBC 6.6 10x3/uL (4.8-10.8)
[2016-12-06 05:27] LABS: CALCIUM 9.7 mg/dL (8.5-10.1); CARBON DIOXIDE 29.3 mmol/L (21.0-32.0); CREATININE - SERUM 1.9 mg/dL (0.6-1.3); POTASSIUM - SERUM 5.3 mmol/L (3.5-5.1)
--- NOTE | 2016-12-06 06:04 | NUR ---
Nutrition follow/up: Diet changed to renal low sodium mechanical soft per Dr. Reynaga order due to elevated K. PO intake, however, has been very poor; < 25% of meals. Wt: 141#; pt has lost ~5# since admit. +BM Pt is now assessed with severe malnutrition of acute illness R/T cardiac issues AEB ~3% weight loss in 7 days; < 50% intake of estimated energy needs for > 5 days. Due to pt with very poor po intake, recommend nutrition support via NGT vs PEG tube placement and Suplena started @ 15 ml/hr with increase to goal rate of 35 ml/hr. RDN following.
--- NOTE | 2016-12-06 07:15 | NUR ---
PT SITTING UP IN BED SLEEPING NO S/S DISTRESS WILL CONTINUE TO MONITOR.
[2016-12-06 08:00] VITALS: BP 140/80
--- NOTE | 2016-12-06 11:16 | NUR ---
DR KELLY WILL BE HERE SOON TO SEE PT. PAGED RENAL NUCLEAR MEDICINE TECHNOLOGIST TO SEE IF OK TO DC PT.
--- NOTE | 2016-12-06 11:52 | NUR ---
PT IS YELLING AT ME TELLING ME TO LEAVE HER ALONE AND SHE WANTS TO GO "HOME TO ...". PT WILL NOT FOLLOW SIMPLE COMMANDS ETC. WAITING ON DR KELLY TO GET HERE.
[2016-12-06 12:00] VITALS: BP 154/77
[2016-12-06 16:00] VITALS: BP 158/79
--- NOTE | 2016-12-06 16:17 | NUR ---
PT FAMILY WILL BE HERE IN AM TO PICK PT UP. DR KELLY DID NOT DO MED REC. PT IS ON NEW MEDS HERE IN HOSPITAL. HE WILL HAVE TO DO MED REC HIMSELF IN THE MORNING.
--- NOTE | 2016-12-06 16:28 | NUR ---
PT HAS REFUSED MEDICATIONS ALL DAY LONG. SHE STATES SHE JUST WANTS TO SLEEP AND GO HOME. PT IS SUPPOSED TO GO HOME TOMORROW AM WHEN THE WEATHER IS BETTER AND HER CAN GET HERE.
--- NOTE | 2016-12-06 16:55 | NUR ---
Patient Name: MATIAS PHAM Encounter No: [id number] : 1930 Primary Insurance: MEDICARE A & B Anticipated DC Date: 12-07-2016 Planned Disposition: Home Health Service External Planned Provider: [facility] DCP follow-up note: CM RECEIVED ORDER FOR DISCHARGE TOMORROW. CM NOTIFIED LOTTERY MANAGER [facility] NURSE, MARGARITA AND FAXED UPDATE TO [employer] AT [phone]. FOR DISCHARGE, NOTIFY [facility] FOR RESUMPTION AT [phone], FAX DISCHARGE INFORMATION TO [phone]. PT'S SPOUSE REQEUSTS THAT ALL NEW DISCHARGE MEDICATIONS BE CALLED IN TO [facility]. Filing Or Registry Clerk: Kurt Fernandes
--- NOTE | 2016-12-06 18:44 | NUR ---
PT SITTING UP IN BED NO S/S DISTRESS
[2016-12-06 20:00] VITALS: BP 152/79
--- NOTE | 2016-12-06 20:00 | NUR ---
PT RESTING IN BED WITH NO DISTRESS. O2 @ 3L/NC IN PLACE WITH NONLABORED RESPIRATIONS. PT HAS BEEN REFUSING MEDS TODAY. WILL ALLOW HER TO REST UNTIL MED PASS AND THEN WORK WITH HER ON TAKING HER HS MEDS. CPOC. CALL LIGHT IN REACH.
--- NOTE | 2016-12-06 23:00 | NUR ---
PT ROUSED EASILY TO NURSE. DISORIENTATED TO TIME/PLACE. WHEN ORIENTATION DONE, PT THEN QUESTIONED WHY SHE WAS NOT HOME. EXPLAINED TO PATIENT THAT SHE WAS SCHEDULED TO GO HOME IN THE AM, THAT HER WAS NOT ABLE TO PICK HER UP DUE TO INCLEMENT WEATHER TODAY. PT THEN TOOK HER HS MEDS AND RETURNED TO SLEEP. CPOC. CALL LIGHT IN REACH.
[2016-12-07] VITALS: BP 125/51
[2016-12-07 05:03] LABS: BASOPHILS 0.7 % (0.0-2.0); EOSINOPHILS 6.3 % (0-7); HEMOGLOBIN 9.1 g/dL (12-16); IMMATURE GRANULOCYTES 0.4 % (0-5); LYMPHOCYTES 25.4 % (15-50); MCH 29.1 pg (26.0-34.0); MCHC 30.3 g/dL (31.0-37.0); MCV 95.8 fL (80.0-100.0); MEAN PLATELET VOLUME 10.4 fL (7.4-10.4); MONOCYTES 7.5 % (2-11); NEUTROPHILS 59.7 % (40-80); PLATELET COUNT 175 10x3/uL (130-400); RBC 3.13 10x6/uL (4.00-5.40); RDW 16.2 % (11.5-14.5); WBC 5.4 10x3/uL (4.8-10.8)
[2016-12-07 05:18] LABS: ANION GAP 11.7 mmol/L (8-16); CALCIUM 9.9 mg/dL (8.5-10.1); CARBON DIOXIDE 28.6 mmol/L (21.0-32.0); CREATININE - SERUM 1.6 mg/dL (0.6-1.3); POTASSIUM - SERUM 5.3 mmol/L (3.5-5.1)
[2016-12-07 08:03] VITALS: BP 148/94
[2016-12-07] MEDS ORDERED: BETAPACE 120 M120 MG PO (09:14)
[2016-12-07] MEDS ORDERED: CARDIZEM SR90 MG PO (09:14)
--- NOTE | 2016-12-07 09:34 | NUR ---
IV AND TELEMETRY DCD. DC PLANS GIVEN. UNDERSTANDING VOICED. ESCORTED TO CAR BY W/C.
== END 2016-12-07 09:35 | disposition home health service (06) | DRG 308 ==
LOC: D.ER 13:59 → D.M2 16:10
PROVIDERS: Family Medicine; Internal Medicine Nephrology; Physician Assistant Medical; ADMIT Family Medicine
DX: I48.91 Unspecified atrial fibrillation (principal); N17.0 Acute kidney failure with tubular necrosis; N39.0 Urinary tract infection, site not specified; N18.4 Chronic kidney disease, stage 4 (severe); E86.0 Dehydration; I12.9 Hypertensive chronic kidney disease with stage 1 through stage 4 chronic kidney disease, or unspecified chronic kidney disease; G62.9 Polyneuropathy, unspecified; D35.1 Benign neoplasm of parathyroid gland; E83.52 Hypercalcemia; E87.5 Hyperkalemia; D63.8 Anemia in other chronic diseases classified elsewhere; R41.0 Disorientation, unspecified; Z86.73 Personal history of transient ischemic attack (TIA), and cerebral infarction without residual deficits; Z87.891 Personal history of nicotine dependence

== ENCOUNTER 2016-12-11 06:55 | Emergency (ER) | payer MEDICARE, BC ==
[2016-11-27 12:37] VITALS: BMI 25.4
[~2016-12-11 06:55] MED LIST changes: +BETAPACE 120 M120 MG PO; +CARDIZEM SR90 MG PO
[2016-12-11 08:11] LABS: APPEARANCE HAZY (CLEAR); BILIRUBIN NEGATIVE (NEGATIVE); COLOR YELLOW (YELLOW); GLUCOSE NEGATIVE (NEGATIVE); KETONE NEGATIVE (NEGATIVE); LEUKOCYTE ESTERASE NEGATIVE (NEGATIVE); NITRITE NEGATIVE (NEGATIVE); PROTEIN NEGATIVE (NEGATIVE); SPECIFIC GRAVITY 1.015 (1.005-1.020); UROBILINOGEN NORMAL (NORMAL)
[2016-12-11 08:37] LABS: ANION GAP 11.9 mmol/L (8-16); BILIRUBIN - TOTAL 0.4 mg/dL (0.2-1.3); CALCIUM 8.8 mg/dL (8.5-10.1); CARBON DIOXIDE 28.7 mmol/L (21.0-32.0); CREATININE - SERUM 2.4 mg/dL (0.6-1.3); POTASSIUM - SERUM 4.6 mmol/L (3.5-5.1); PROTEIN - SERUM 5.8 g/dL (6.4-8.2)
[2016-12-11 09:02] LABS: BASOPHILS 0.3 % (0.0-2.0); EOSINOPHILS 3.3 % (0-7); HEMATOCRIT 30.6 % (36.0-48.0); HEMOGLOBIN 9.3 g/dL (12-16); IMMATURE GRANULOCYTES 0.7 % (0-5); MCH 28.7 pg (26.0-34.0); MCHC 30.4 g/dL (31.0-37.0); MCV 94.4 fL (80.0-100.0); MEAN PLATELET VOLUME 10.7 fL (7.4-10.4); MONOCYTES 8.5 % (2-11); NEUTROPHILS 73.2 % (40-80); RBC 3.24 10x6/uL (4.00-5.40); RDW 16.6 % (11.5-14.5); WBC 7.6 10x3/uL (4.8-10.8)
[2016-12-11 09:03] LABS: PLATELET COUNT 216 10x3/uL (130-400)
== END 2016-12-11 09:34 | disposition home or self-care (01) ==
LOC: D.ER 06:55
PROVIDERS: Emergency Medicine
DX: R33.9 Retention of urine, unspecified (principal)

== ENCOUNTER 2016-12-19 20:30 | Emergency (ER) | payer MEDICARE, BC ==
[2016-11-27 12:37] VITALS: BMI 25.4
[2016-12-19 21:01] LABS: APPEARANCE CLEAR (CLEAR); BILIRUBIN NEGATIVE (NEGATIVE); COLOR YELLOW (YELLOW); GLUCOSE NEGATIVE (NEGATIVE); KETONE NEGATIVE (NEGATIVE); LEUKOCYTE ESTERASE NEGATIVE (NEGATIVE); NITRITE NEGATIVE (NEGATIVE); PROTEIN TRACE mg/dL (NEGATIVE); UROBILINOGEN NORMAL (NORMAL)
== END 2016-12-19 22:49 | disposition home or self-care (01) ==
LOC: D.ER 20:30
PROVIDERS: Nurse Practitioner Family
DX: R33.9 Retention of urine, unspecified (principal); I50.9 Heart failure, unspecified; N28.9 Disorder of kidney and ureter, unspecified; Z86.73 Personal history of transient ischemic attack (TIA), and cerebral infarction without residual deficits